=== PATIENT | female | born 1990 | race Caucasian/White ===

== ENCOUNTER 2019-11-13 05:24 | Emergency (ER) | payer BC, OTHER ==
[~2019-11-13] VITALS: Ht 157.5 cm; Wt 70.3 kg
[2019-11-13] MEDS ORDERED: IBUPROFEN 600 MG TAB PO ONE (05:30)
[2019-11-13 05:38] VITALS: BP 152/84
[2019-11-13 06:07] LABS: Urine WBC None Seen /hpf (0 - 5)
[2019-11-13 06:12] LABS: Urine Bacteria NONE SEEN /hpf (None Seen); Urine Blood Negative /uL (Negative); Urine Specific Gravity 1.017 (1.001-1.035)
[2019-11-13] MEDS ORDERED: ACETAMINOPHEN 500 MG TAB PO ONE (06:45)
[2019-11-13] MEDS ORDERED: cefTRIAXone SOD 1,000 MG VL IM ONE (06:45)
== END 2019-11-13 07:53 | disposition home or self-care (01) ==
LOC: ER 05:24
DX: J03.90 Acute tonsillitis, unspecified (principal); N61.0 Mastitis without abscess
CPT/HCPCS: 71046; 81001; 81025; 96372; 99284; J0696